=== PATIENT | male | born 1985 | race Caucasian/White ===

== ENCOUNTER 2016-04-18 16:26 | Emergency (ER) | payer OTHER ==
--- NOTE | 2016-04-18 18:39 | DIAGNOSTIC IMAGING REPORT ---
PROCEDURE: CT SINUS/FACIAL BONES W/CONT CLINICAL INDICATION: Left upper lip and facial swelling after cat scratch. TECHNIQUE: 100 ml of Isovue 300 injected intravenously and axial images were obtained through the face with coronal reformations. COMPARISON: None. FINDINGS: Dental hardware obscures some of the detail. There is moderate to marked soft tissue swelling of the left upper left with a 1.5 x 0.5 cm serpiginous fluid collection in the subcutaneous tissues (small abscess). There is no evidence of radiopaque foreign body Findings are associated with enlarged left submandibular and left lateral sublingual lymph nodes (1.8 cm, 2.1 cm). There is a 10 mm retention cyst in the caudal left maxillary sinus (chronic). Sinuses and mastoids are otherwise normal. Portions of the orbits are seen, and are normal. IMPRESSION: 1. There is moderate to marked soft tissue swelling over the left upper lip with a 1.5 x 0.5 cm subcutaneous fluid collection (consistent with small abscess ). 2. Associated moderate left sublingual and submandibular adenopathy. 3. Findings discussed with Dr. Velasquez Patterson. All CT scans at this facility use dose modulation, iterative reconstruction, and/or weight-based dosing when appropriate to reduce radiation dose to as low as reasonably achievable.
--- NOTE | 2016-04-20 02:27 | ED ORDER SUMMARY ---
..... Patient: DONITA PARTIDA OrderSheet [facility] VisitID: [id number] [address] [place] [address] 30y, M Registration Date/Time: 04/18/2016 ORDER SHEET Weight: 72.5 kg (stated) Allergies: None GENERAL ORDERS: Blood Culture (No) (N/A) Urgent (16:40 04/18/2016 Sven HAMPTON) (Ack 16:42 RMarsden R.N.) (Ack 16:42 LNations ER Tech1) CBC w Diff Urgent (16:40 04/18/2016 Sven HAMPTON) (16:42 RMarsden R.N.) (Ack 16:42 LNations ER Tech1) CMP Urgent (16:40 04/18/2016 Sven HAMPTON) (16:42 RMarsden R.N.) (Ack 16:42 LNations ER Tech1) Amylase Urgent (16:40 04/18/2016 Sven HAMPTON) (16:42 RMarsden R.N.) (Ack 16:42 LNations ER Tech1) Lipase Urgent (16:40 04/18/2016 Sven HAMPTON) (Ack 16:42 LNations ER Tech1) (Ack 16:42 RMarsden R.N.) Lactate, Serum Urgent (16:40 04/18/2016 Sven HAMPTON) (Ack 16:42 RMarsden R.N.) (Ack 16:42 LNations ER Tech1) MEDICATION ORDERS: Unasyn IV 3 gm/100mL (NOW) (17:19 04/18/2016 Sven HAMPTON) IV FLUIDS: IV Saline Lock (16:40 04/18/2016 Sven HAMPTON) (Ack 16:42 RMarsden R.N.) IV NS : initial bolus 500 mL (1000 mL/hr), then 125 mL/hr for 4h (NOW); Urgent (17:19 04/18/2016 Sven HAMPTON) Zofran IV 4 mg (NOW) (17:19 04/18/2016 Sven HAMPTON) Dilaudid IV 0.5 mg (HIGH ALERT MEDICATION, NOW) (17:04/18/2016 Sven HAMPTON) ORDER SHEET NOTES: [Electronically signed by Langston, Pauline R.N. (00:41 04/19/2016)] [Electronically locked/signed by Pauline Langston R.N. (00:41 04/19/2016)]
--- NOTE | 2016-04-20 02:27 | ED CLINICAL REPORT ---
Clinical Report - Physicians/Mid Levels [facility] [address] [place] [address] 04/18/2016 16:26 Patient: DONITA PARTIDA Time Seen: 16:39. Arrived- By ambulance. Historian- patient and EMS personnel. HISTORY OF PRESENT ILLNESS Chief Complaint: (facial swelling). This started today and is still present and now worse. It was gradual in onset and has been constant. It is described as moderately painful. It has been located on the face. A cause has been identified (he says that several days ago he was scratched above his lip by a cat). Similar symptoms previously: None. REVIEW OF SYSTEMS No chills, fever, sweats, calf pain or chest pain. No cough, difficulty breathing, pedal edema, palpitations or abdominal pain. No constipation, diarrhea, nausea, vomiting or urinary problems. All systems otherwise negative, except as recorded above. PAST HISTORY Problems: Scabies. Hypothyroidism. Atypical Chest Pain. Anxiety Reaction. Headache. Bicuspid aortic valve. Additional Surgeries: Hand lt . Nose. Sinus Surgery. Medications: None. Allergies: None. SOCIAL HISTORY Current every day light tobacco smoker (cigarette)- less than 1/2 a pack per day. No alcohol use or drug use. FAMILY HISTORY No significant family medical history. ADDITIONAL NOTES The nursing notes have been reviewed. PHYSICAL EXAM Vital Signs: 04/18/2016 16:27 BP: 141/74. HR: 81. RR: 14. O2 saturation: 100%. Temp: 98.2 F. Pain level now: 610. Have been reviewed. Appearance: Alert. Eyes: Pupils equal, round and reactive to light. ENT: Pharynx normal. Neck: Neck supple. CVS: Normal heart rate and rhythm. Heart sounds normal. Respiratory: Breath sounds normal. Abdomen: Nontender. No organomegaly. Skin: Single medium abscess with fluctuance and cellulitis to the face. Extremities: Normal external inspection. No calf tenderness. LABS, X-RAYS, AND EKG Laboratory Tests: CBC w Diff: (KURT: 04/18/2016 17:15) ( MsgRcvd 04/18/2016 17:34) Final results Test Result Flag Units (Reference) WHITE BLOOD COUNT 10.5 K/uL (4.5-11.5) RED BLOOD COUNT 4.67 M/uL (4.50-5.90) HEMOGLOBIN 13.9 gm/dL (13.5-17.5) HEMATOCRIT 40.7 L % (41.0-53.0) MEAN CELL VOLUME 87 fL (80-100) MEAN CORPUSCULAR HGB 30 pg (26-34) MEAN CORPUSCULAR HGB CONC 34 g/dL (31-37) RED CELL DISTRIBUTION WIDTH 13.5 % (11.6-14.8) PLATELET COUNT 193 K/uL (150-400) NEUTROPHIL % 70.7 % (50-75) LYMPH % 20.6 L % (25-40) MONO % 6.3 % (3-14) EOSINOPHIL % 2.0 % (0-4) BASOPHIL % 0.4 % (0-2) Blood Culture: (KURT: 04/18/2016 17:34) ( [facility] [place] 04/19/[place] 17:53) IP Is patient on antibiotics? N If so, list antibiotic: N/A Test Result Flag Units (Reference) CULTURE, BLOOD NO GROWTH AFTER 24 HOURS Blood Culture: (KURT: 04/18/2016 17:15) ( [facility] [place] 04/19/2016 17:24) IP Is patient on antibiotics? N If so, list antibiotic: N/A Test Result Flag Units (Reference) CULTURE, BLOOD NO GROWTH AFTER 24 HOURS . Note - Tests: (PROCEDURE: CT SINUS/FACIAL BONES W/CONT CLINICAL INDICATION: Left upper lip and facial swelling after cat scratch. TECHNIQUE: 100 ml of Isovue 300 injected intravenously and axial images were obtained through the face with coronal reformations. COMPARISON: None. FINDINGS: Dental hardware obscures some of the detail. There is moderate to marked soft tissue swelling of the left upper left with a 1.5 x 0.5 cm serpiginous fluid collection in the subcutaneous tissues (small abscess). There is no evidence of radiopaque foreign body Findings are associated with enlarged left submandibular and left lateral sublingual lymph nodes (1.8 cm, 2.1 cm). There is a 10 mm retention cyst in the caudal left maxillary sinus (chronic). Sinuses and mastoids are otherwise normal. Portions of the orbits are seen, and are normal. IMPRESSION: 1. There is moderate to marked soft tissue swelling over the left upper lip with a 1.5 x 0.5 cm subcutaneous fluid collection (consistent with small abscess). 2. Associated moderate left sublingual and submandibular adenopathy.). PROGRESS AND PROCEDURES Incision & Drainage of Abscess: Time-out completed immediately before the procedure. The abscess is located in the face. The risks of the procedure, benefits and alternatives were explained. Consent was obtained. Parenteral Dilaudid administered. Local anesthesia provided using 2% lidocaine no epi. Skin cleansed with Betadine. The abscess was incised with a #11 surgical blade. A small amount of pus was drained. Sample obtained for cultures and gram stain. A dressing was applied. Course of Care: Patient is stable. Patient/family counseled. Old medical records reviewed. Disposition: Discharged. Condition: stable. CLINICAL IMPRESSION Single abscess to the face with incision and drainage. INSTRUCTIONS (at the time of the patient's discharge the computer systems were down. Therefore he was provided with and written discharge instructions. Please refer to those for further details). (Electronically signed by Velasquez Patterson MD 04/19/2016 22:18)
--- NOTE | 2016-04-20 02:27 | ED NURSING NOTES ---
Clinical Report - Nurses [facility] [place] [address] 04/18/2016 16:26 Patient: DONITA PARTIDA TRIAGE Triage time 16:27. Acuity: LEVEL 4. Chief Complaint: INJURY TO FACE and (facial swelling, drainage). 16:36 04/18/16. Alert. No acute distress. SEPSIS SCREEN: Sepsis Screen. Negative (no infection suspected/documented). KLAUDIA COMA SCORE: Klaudia Coma Scale: 15- eyes open spontaneously (4); best verbal response- oriented x 4 (5); best motor response- obeys commands (6). --16:36 Iza Salmeron R.N. 16:27 04/18/16. BP: 141/74. HR: 81. RR: 14. O2 saturation: 100%. Temp: 98.2 F. Pain level now: 610. Additional comments: pt states he has burning pain on his lip. --16:36 Iza Salmeron R.N. Weight: 72.5 kg stated. Height/Length: 71 inches Per Patient. BMI: 22.3. --16:34 Iza Salmeron R.N. Medications None. --16:31 Iza Salmeron R.N. Allergies None. --16:31 Iza Salmeron R.N. History Arrived by EMS. Historian: patient. This occurred (several hours ago). He sustained a laceration. ( pt reports his friend's cat scratched his face 3 days ago. pt reports swelling began a few hours ago.). 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 PAST MEDICAL HX: Tetanus status: up-to-date. Last tetanus: (pt states he had a tetanus shot "a couple years ago"). Immunizations: up-to-date. SOCIAL HX: Light tobacco smoker- less than 1/2 a pack per day. No alcohol use or drug use. FALL RISK ASSESSMENT: Fall risk assessment completed. No fall risk identified. NUTRITIONAL RISK ASSESSMENT: The nutritional risk assessment revealed no deficiencies. FUNCTIONAL ASSESSMENT: Functional assessment: no impairments noted. LEARNING NEEDS ASSESSMENT: The learning needs assessment revealed no barriers. SKIN INTEGRITY ASSESSMENT: Skin integrity risk assessment completed. No skin integrity risk identified. --16:36 Iza Salmeron R.N. PROBLEMS: Scabies. Hypothyroidism. Anxiety Reaction. Headache. Bicuspid aortic valve. Immunizations. --16:31 Iza Salmeron R.N. ADDITIONAL SURGERIES: Hand lt . Nose. Sinus Surgery. --16:31 Iza Salmeron R.N. Interventions To treatment room. --16:36 Iza Salmeron R.N. PHYSICAL ASSESSMENT 16:40 04/18/16. GENERAL / NEURO / PSYCH: Alert. Oriented X 4. Appears in no acute distress. HEENT: ( pt states he had a headache a couple hours ago.). Voice within normal limits. Upper lip: tenderness, swelling, erythema and superficial abrasion of the left side of the upper lip. Mucous membranes are pink. RESPIRATORY: Respirations not labored. BACK: No neck or back tenderness. ROM normal to the neck and back. SKIN: Skin is warm and dry. --16:40 Iza Salmeron R.N. NURSING PROGRESS NOTES 16:41 04/18/16. Patient gowned. Call light placed in reach. Side rails up x 1. Bed placed in lowest position. Brakes of bed on. Patient ready for evaluation- chart flagged and notification provided. ( waiting for pt's ID band.). --16:41 Iza Salmeron R.N. DISPOSITION / DISCHARGE Departure time: 2029Apr 18 2016. --00:40 Pauline Langston R.N. ( See paper charting for further notes.). --00:40 Pauline Langston R.N. Locked/Released at 04/19/2016 0:41 by Pauline Langston R.N.
--- NOTE | 2016-04-20 02:27 | ED ORDER SUMMARY ---
..... Patient: DONITA PARTIDA OrderSheet [facility] VisitID: [id number] [address] [place] [address] 30y, M Registration Date/Time: 04/18/2016 ORDER SHEET Weight: 72.5 kg (stated) Allergies: None GENERAL ORDERS: Blood Culture (No) (N/A) Urgent (16:40 04/18/2016 Sven HAMPTON) (Ack 16:42 RMarsden R.N.) (Ack 16:42 LNations ER Tech1) CBC w Diff Urgent (16:40 04/18/2016 Sven HAMPTON) (16:42 RMarsden R.N.) (Ack 16:42 LNations ER Tech1) CMP Urgent (16:40 04/18/2016 Sven HAMPTON) (16:42 RMarsden R.N.) (Ack 16:42 LNations ER Tech1) Amylase Urgent (16:40 04/18/2016 Sven HAMPTON) (16:42 RMarsden R.N.) (Ack 16:42 LNations ER Tech1) Lipase Urgent (16:40 04/18/2016 Sven HAMPTON) (Ack 16:42 LNations ER Tech1) (Ack 16:42 RMarsden R.N.) Lactate, Serum Urgent (16:40 04/18/2016 Sven HAMPTON) (Ack 16:42 RMarsden R.N.) (Ack 16:42 LNations ER Tech1) MEDICATION ORDERS: Unasyn IV 3 gm/100mL (NOW) (17:19 04/18/2016 Sven HAMPTON) IV FLUIDS: IV Saline Lock (16:40 04/18/2016 Sven HAMPTON) (Ack 16:42 RMarsden R.N.) IV NS : initial bolus 500 mL (1000 mL/hr), then 125 mL/hr for 4h (NOW); Urgent (17:19 04/18/2016 Sven HAMPTON) Zofran IV 4 mg (NOW) (17:19 04/18/2016 Sven HAMPTON) Dilaudid IV 0.5 mg (HIGH ALERT MEDICATION, NOW) (17:04/18/2016 Sven HAMPTON) ORDER SHEET NOTES: [Electronically signed by Langston, Pauline R.N. (00:41 04/19/2016)] [Electronically locked/signed by Pauline Langston R.N. (00:41 04/19/2016)]
--- NOTE | 2016-04-20 02:27 | ED NURSING NOTES ---
Clinical Report - Nurses [facility] [place] [address] 04/18/2016 16:26 Patient: DONITA PARTIDA TRIAGE Triage time 16:27. Acuity: LEVEL 4. Chief Complaint: INJURY TO FACE and (facial swelling, drainage). 16:36 04/18/16. Alert. No acute distress. SEPSIS SCREEN: Sepsis Screen. Negative (no infection suspected/documented). KLAUDIA COMA SCORE: Klaudia Coma Scale: 15- eyes open spontaneously (4); best verbal response- oriented x 4 (5); best motor response- obeys commands (6). --16:36 Iza Salmeron R.N. 16:27 04/18/16. BP: 141/74. HR: 81. RR: 14. O2 saturation: 100%. Temp: 98.2 F. Pain level now: 610. Additional comments: pt states he has burning pain on his lip. --16:36 Iza Salmeron R.N. Weight: 72.5 kg stated. Height/Length: 71 inches Per Patient. BMI: 22.3. --16:34 Iza Salmeron R.N. Medications None. --16:31 Iza Salmeron R.N. Allergies None. --16:31 Iza Salmeron R.N. History Arrived by EMS. Historian: patient. This occurred (several hours ago). He sustained a laceration. ( pt reports his friend's cat scratched his face 3 days ago. pt reports swelling began a few hours ago.). 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 PAST MEDICAL HX: Tetanus status: up-to-date. Last tetanus: (pt states he had a tetanus shot "a couple years ago"). Immunizations: up-to-date. SOCIAL HX: Light tobacco smoker- less than 1/2 a pack per day. No alcohol use or drug use. FALL RISK ASSESSMENT: Fall risk assessment completed. No fall risk identified. NUTRITIONAL RISK ASSESSMENT: The nutritional risk assessment revealed no deficiencies. FUNCTIONAL ASSESSMENT: Functional assessment: no impairments noted. LEARNING NEEDS ASSESSMENT: The learning needs assessment revealed no barriers. SKIN INTEGRITY ASSESSMENT: Skin integrity risk assessment completed. No skin integrity risk identified. --16:36 Iza Salmeron R.N. PROBLEMS: Scabies. Hypothyroidism. Anxiety Reaction. Headache. Bicuspid aortic valve. Immunizations. --16:31 Iza Salmeron R.N. ADDITIONAL SURGERIES: Hand lt . Nose. Sinus Surgery. --16:31 Iza Salmeron R.N. Interventions To treatment room. --16:36 Iza Salmeron R.N. PHYSICAL ASSESSMENT 16:40 04/18/16. GENERAL / NEURO / PSYCH: Alert. Oriented X 4. Appears in no acute distress. HEENT: ( pt states he had a headache a couple hours ago.). Voice within normal limits. Upper lip: tenderness, swelling, erythema and superficial abrasion of the left side of the upper lip. Mucous membranes are pink. RESPIRATORY: Respirations not labored. BACK: No neck or back tenderness. ROM normal to the neck and back. SKIN: Skin is warm and dry. --16:40 Iza Salmeron R.N. NURSING PROGRESS NOTES 16:41 04/18/16. Patient gowned. Call light placed in reach. Side rails up x 1. Bed placed in lowest position. Brakes of bed on. Patient ready for evaluation- chart flagged and notification provided. ( waiting for pt's ID band.). --16:41 Iza Salmeron R.N. DISPOSITION / DISCHARGE Departure time: 2029Apr 18 2016. --00:40 Pauline Langston R.N. ( See paper charting for further notes.). --00:40 Pauline Langston R.N. Locked/Released at 04/19/2016 0:41 by Pauline Langston R.N.
--- NOTE | 2016-04-20 02:39 | ED DISCHARGE INSTRUCTIONS ---
Patient: DONITA PARTIDA General Instructions [facility] VisitID: [id number] [place] [address] 30y, M Registration Date/Time: 04/18/2016 Single abscess to the face with incision and drainage. INSTRUCTIONS (at the time of the patient's discharge the computer systems were down. Therefore he was provided with and written discharge instructions. Please refer to those for further details). ADDITIONAL INFORMATION Abscess [Incision & Drainage] An abscess (sometimes called a boil) occurs when bacteria get trapped under the skin and begin to grow. Pus forms inside the abscess as the body responds to the bacteria. An abscess can occur with an insect bite, ingrown hair, blocked oil gland, pimple, cyst, or puncture wound. Treatment of your abscess has required an incision to drain the pus. If the abscess pocket was large, a gauze packing may have been inserted. This will need to be removed and possibly replaced on your next visit. Antibiotics are not required in the treatment of a simple abscess, unless the infection is spreading into the skin around the wound (known as cellulitis). Healing of the wound will take about one to two weeks depending on the size of the abscess. Healthy tissue will grow from the bottom and sides of the opening until it seals over. Home Care: The wound may drain for the first two days. Cover the wound with a clean dry dressing. If the dressing becomes soaked with blood or pus, change it. If a gauze packing was placed inside the abscess cavity, you may be advised to remove it yourself. You may do this in the shower. Once the packing is removed, you should wash the area in the shower or bath 3 to 4 times a day, until the skin opening has closed. If you were prescribed antibiotics, take them as directed until they are all gone. You may use acetaminophen (Tylenol) or ibuprofen (Motrin, Advil) to control pain, unless another pain medicine was prescribed. [ NOTE: If you have liver disease or ever had a stomach ulcer, talk with your doctor before using these medicines.] Follow Up with your doctor as advised by our staff. If a gauze packing was inserted in your wound, it should be removed in 1-2 days. Check your wound every day for the signs of worsening infection listed below. Get Prompt Medical Attention if any of the following occur: Increasing redness or swelling Red streaks in the skin leading away from the wound Increasing local pain or swelling Continued pus draining from the wound two days after treatment Fever of 100.4F (38C) or higher, or as directed by your healthcare provider You have been given the following additional information: Abscess, Incision And Drainage (Electronically signed by Velasquez Patterson MD 04/19/2016 22:18)
--- NOTE | 2016-04-20 02:39 | ED MED RECONCILIATION SUMMARY ---
Patient: DONITA PARTIDA Medication Reconciliation Report [facility] VisitID: [id number] [address] [place] [address] 30y, M Registration Date/Time: 04/18/2016 Weight: 72.5 kg Height/Length: 71 in. BMI: 22.3 ALLERGIES: None The patient's Home Medications are listed below: NONE. The source(s) of the original Home Medication information: Not obtained. The following Medications were given to the patient in the Emergency Department: None. The following Medications were prescribed to the patient: None.
--- NOTE | 2016-04-20 02:39 | ED MAR SUMMARY ---
..... Medication Administration Record [facility] [address] [place], [place] [id number] Patient: DONITA PARTIDA Visit ID: [id number] 30y, M Weight: 72.5 kg Height/Length: 71 in BMI: 22.3 ALLERGIES: None
--- NOTE | 2016-04-20 02:39 | ED MAR SUMMARY ---
..... Medication Administration Record [facility] [address] [place], [place] [id number] Patient: DONITA PARTIDA Visit ID: [id number] 30y, M Weight: 72.5 kg Height/Length: 71 in BMI: 22.3 ALLERGIES: None
--- NOTE | 2016-04-20 02:39 | ED MED RECONCILIATION SUMMARY ---
Patient: DONITA PARTIDA Medication Reconciliation Report [facility] VisitID: [id number] [address] [place] [place] [address] 30y, M Registration Date/Time: 04/18/2016 Weight: 72.5 kg Height/Length: 71 in. BMI: 22.3 ALLERGIES: None The patient's Home Medications are listed below: NONE. The source(s) of the original Home Medication information: Not obtained. The following Medications were given to the patient in the Emergency Department: None. The following Medications were prescribed to the patient: None.
== END 2016-04-18 20:30 | disposition home or self-care (01) ==
LOC: ED SRH 16:26
DX: L02.01 Cutaneous abscess of face (principal); F17.210 Nicotine dependence, cigarettes, uncomplicated
CPT/HCPCS: 90065; 90074; 90100; 92031; 92235; 92530; 95059